=== PATIENT | female | born 1970 | race Caucasian/White ===

== ENCOUNTER 2021-04-01 02:00 | Outpatient (CLI) | payer MEDICAID | END 2021-04-01 02:01 | disposition critical access hospital (66) | LOC: EMS 02:00 | DX: R41.82 Altered mental status, unspecified (principal); R53.83 Other fatigue | CPT/HCPCS: A0425; A0427; A0999 ==

== ENCOUNTER 2021-04-01 02:19 | Inpatient (IN) | payer MEDICAID ==
--- NOTE | 2021-04-01 02:30 | ED Physician Documentation ---
History of Present Illness - Stated complaint Stated Complaint: AMS - History obtained from History obtained from: EMS - Additonal information Additional information: 50yF bibems with AMS and report of possible drug overdose. patient was found in [place] low income housing where she was apparently visiting friends and became somnolent. EMS had trouble getting information on scene. 0.4 mg IV narcan administered en route with minimal improvement in somnolence. Fingerstick in field 224. On arrival, patient opens eyes to loud verbal cue, is able to state name, squeezes both hands on commands, but is visibly somnolent. further history limited by patient AMS Review of Systems Unable to obtain: Intoxicated PD PAST MEDICAL HISTORY - Past Surgical History Past Surgical History: No - Present Medications Home Medications: Ambulatory Orders Medication Instructions Recorded Confirmed No Known Home Medications 08/03/15 08/03/15 - Allergies Allergies/Adverse Reactions: Allergies Allergy/AdvReac Type Severity Reaction Status Date / Time No Known Drug Allergies Allergy Verified 04/01/21 02:32 - Social History Does the pt smoke?: Yes Smoking Status: Current every day smoker - Immunizations Immunizations are current?: No Immunizations: TDAP >10years/unknown PD ED PE NORMAL - Vitals Vital signs reviewed: Yes - General General: No acute distress, Other (AOX1) - HEENT HEENT: Atraumatic, PERRL, EOMI, Pharynx benign, Other (brownish substance visible to R nare c/w dried blood) - Neck Neck: Supple, no meningeal sign, No bony TTP - Cardiac Cardiac: RRR - Respiratory Respiratory: No respiratory distress, Clear bilaterally - Abdomen Abdomen: Non tender, Non distended - Back Back: No spinal TTP - Derm Derm: Other (excoriations to face consistent with methamphetamine "picking" mannerisms) - Neuro Neuro: Other (somnolent, moving all extremities on command. no facial droop. some slurring of speech) Eye Opening: To Voice Motor: Obeys Commands Verbal: Confused GCS Score: 13 - Psych Psych: Other (somnolent) Results - Vitals Vitals: Vital Signs - 24 hr 04/01/21 04/01/21 04/01/21 02:32 02:36 03:06 Temperature 36.1 C L 36.1 C L Heart Rate 90 90 94 Respiratory 13 11 L 13 Rate Blood Pressure 124/99 H 124/66 124/66 O2 Saturation 95 95 96 Oxygen O2 Source Room air - EKG (time done) 0239 Rate: Rate (enter#) (87) Rhythm: NSR [place]: Normal Intervals: Normal NM QRS: Normal Ischemia: Normal ST segments - Labs Labs: Laboratory Tests 04/01/21 04/01/21 04/01/21 02:30 02:30 03:00 WBC 13.6 H RBC 4.44 Hgb 13.5 Hct 41.3 MCV 93.0 MCH 30.4 MCHC 32.7 RDW 13.2 Plt Count 252 MPV 9.7 Neut # (Auto) 11.7 H Lymph # (Auto) 1.0 L [place] # (Auto) 0.6 Eos # (Auto) 0.1 Baso # (Auto) 0.0 Absolute Nucleated RBC 0.00 Nucleated RBC % 0.0 Sodium 141 Potassium 4.1 Chloride 105 Carbon Dioxide 26 Anion Gap 10.0 BUN 18 Creatinine 1.2 H Estimated GFR (MDRD) 48 L Glucose 45 L* Calcium 8.8 Total Bilirubin 0.4 AST 53 H ALT 51 Alkaline Phosphatase 68 Total Protein 7.2 Albumin 4.1 Globulin 3.1 Albumin/Globulin Ratio 1.3 Lipase 36 Urine Color YELLOW Urine Clarity CLEAR Urine pH 6.0 Ur Specific [place] >=1.030 H Urine Protein TRACE Urine Glucose (UA) 250 H Urine Ketones NEGATIVE Urine Occult Blood SMALL H Urine Nitrite NEGATIVE Urine Bilirubin NEGATIVE Urine Urobilinogen 0.2 (NORMAL) Ur Leukocyte Esterase NEGATIVE Urine RBC 11-25 H Urine WBC 0-3 Ur Squamous Epith Cells FEW Squamous Urine Bacteria Rare Ur Microscopic Review INDICATED Urine Culture Comments NOT INDICATED Urine HCG, Qual NEGATIVE Salicylates < 6.0 Urine Opiates Screen NEGATIVE Ur Oxycodone Screen NEGATIVE Urine Methadone Screen NEGATIVE Ur Propoxyphene Screen NEGATIVE Acetaminophen < 10 L Ur Barbiturates Screen NEGATIVE Ur Tricyclics Screen NEGATIVE Ur Phencyclidine Scrn NEGATIVE Ur Amphetamine Screen POSITIVE H U Methamphetamines Scrn POSITIVE H U Benzodiazepines Scrn NEGATIVE Urine Cocaine Screen NEGATIVE U Cannabinoids Screen NEGATIVE Ethyl Alcohol < 5.0 PD MEDICAL DECISION MAKING - ED course ED course: d/w significant other Ciro over the phone who states that patient occasionally smokes marijuana and methamphetamine and she went over to "some people's house" this evening and took an unknown amount of percocet. Ciro states he was concerned because she appeared to spit up blood and became somnolent and he thought she was having a stroke and called EMS. Per his report, she has a past medical history of "liver or kidney disease". Limited historian. Note that despite EMS report of POC glucose in 200s, patient was hypoglycemic on initial labs. 1 amp D50 administered and glucose now in 100s without significant change in mental status. she then vomited just prior to CT. d/w [facility]/toxicology (case [id number], pharmacist Merlyn) re: patient presentation and unclear history. She agrees this sounds consistent with opioid overdose and since she is sustaining her airway and breathing at rate of 12 we can continue to monitor and administer narcan if any respiratory depression. Sulfonylurea overdose can cause frequent hypoglycemia over the course of 12 hours but other diabetes drugs rarely cause such significant rapid drop. Plan continuing to monitor blood glucose. On return from CT, patient with waning mental status and RR 9 improving to 18 with stimulation. Plan 0.[address] wet read negative. d/w Dr. Mills for ICU admission. Departure - Departure Disposition: 66 [facility] DC/Xfer Clinical Impression: Hypoglycemia, Polysubstance abuse, Altered mental status, Aspiration pneumonitis Condition: Stable
[2021-04-01 02:41] LABS: BASOPHILS % (AUTO) 0.3 %; EOSINOPHILS # (AUTO) 0.1 10^3/uL (0.0-0.7); EOSINOPHILS % (AUTO) 0.4 %; HCT - HEMATOCRIT 41.3 % (37.0-47.0); HGB - HEMOGLOBIN 13.5 g/dL (12.0-16.0); LYMPHOCYTES % (AUTO) 7.6 %; MEAN CORPUSCULAR HEMOGLOBIN 30.4 pg (27.0-31.0); MEAN CORPUSCULAR HGB CONC 32.7 g/dL (32.0-36.0); MEAN PLATELET VOLUME 9.7 fL (7.9-10.8); MONOCYTES # (AUTO) 0.6 10^3/uL (0.0-1.0); MONOCYTES % (AUTO) 4.6 %; NEUTROPHILS # (AUTO) 11.7 10^3/uL (1.5-6.6); NEUTROPHILS % (AUTO) 85.9 %; PLT - PLATELET COUNT 252 10^3/uL (130-450); RED BLOOD COUNT 4.44 10^6/uL (4.20-5.40); RED CELL DISTRIBUTION WIDTH 13.2 % (12.0-15.0); WHITE BLOOD COUNT 13.6 x10^3/uL (4.8-10.8)
[2021-04-01 02:58] LABS: ACETAMINOPHEN < 10 ug/mL (10-30); ALBUMIN 4.1 g/dL (3.2-5.5); ALBUMIN/GLOBULIN RATIO 1.3 (1.0-2.2); ALKALINE PHOSPHATASE 68 IU/L (42-121); ALT ALANINE AMINOTRANSFERASE 51 IU/L (10-60); AST ASPARTATE AMINOTRANSFERASE 53 IU/L (10-42); BILIRUBIN,TOTAL 0.4 mg/dL (0.2-1.0); BUN - BLOOD UREA NITROGEN 18 mg/dL (6-20); CALCIUM 8.8 mg/dL (8.5-10.3); CARBON DIOXIDE - CO2 26 mmol/L (21-32); CHLORIDE 105 mmol/L (101-111); CREATININE 1.2 mg/dL (0.4-1.0); ETOH - ETHANOL < 5.0 mg/dL; GFR - MDRD 48 (>89); LIPASE 36 U/L (22-51); POTASSIUM 4.1 mmol/L (3.5-5.0); SALICYLATE < 6.0 mg/dL; SODIUM 141 mmol/L (135-145); TOTAL PROTEIN 7.2 g/dL (6.7-8.2)
[2021-04-01 03:01] LABS: GLUCOSE 45 mg/dL (70-100)
[2021-04-01] MEDS ORDERED: DEXTROSE 50% ABBOJECT 25 GM/50 ML SYRINGE IVP STA (03:01)
[2021-04-01 03:02] LABS: MUDS CUTOFF CONCENTRATIONS CUTOFF CONC BELOW:
[2021-04-01 03:03] LABS: BILIRUBIN,URINE NEGATIVE (NEGATIVE); GLUCOSE, URINE (UA) 250 mg/dL (NEGATIVE); KETONES,URINE (UA) NEGATIVE (NEGATIVE); LEUKOCYTE ESTERASE, URINE NEGATIVE (NEGATIVE); NITRITE,URINE NEGATIVE (NEGATIVE); OCCULT BLOOD,URINE SMALL (NEGATIVE); PROTEIN,URINE TRACE mg/dL (NEGATIVE); UROBILINOGEN,URINE 0.2 (NORMAL) E.U./dL (NORMAL)
[2021-04-01 03:06] LABS: CLARITY,URINE CLEAR (CLEAR); HCG UR QUAL NEGATIVE
[2021-04-01 03:12] LABS: BACTERIA,URINE Rare /HPF (None Seen); SQUAMOUS EPITHELIAL CELL,UR FEW Squamous (<= Few); WBC,URINE 0-3 /HPF (0-5)
[2021-04-01 03:15] LABS: AMPHETAMINE SCREEN,URINE POSITIVE (NEGATIVE); BARBITURATE SCREEN,UR NEGATIVE (NEGATIVE); BENZODIAZEPINES SCREEN, URINE NEGATIVE (NEGATIVE); COCAINE SCREEN URINE NEGATIVE (NEGATIVE); METHADONE SCREEN, URINE NEGATIVE (NEGATIVE); METHAMPHETAMINES SCREEN, URINE POSITIVE (NEGATIVE); OPIATE SCREEN, URINE NEGATIVE (NEGATIVE); OXYCODONE SCREEN, URINE NEGATIVE (NEGATIVE); PROPOXYPHENE SCREEN, URINE NEGATIVE (NEGATIVE); THC CANNABINOID SCREEN, URINE NEGATIVE (NEGATIVE); TRICYCLIC ANTIDEPRESSANT,URINE NEGATIVE (NEGATIVE)
[2021-04-01] MEDS ORDERED: ONDANSETRON 4 MG/2 ML VIAL IVP STA (03:32)
[2021-04-01] MEDS ORDERED: ACETAMINOPHEN 325 MG TABLET PO PRN (03:56)
[2021-04-01] MEDS ORDERED: SODIUM CHLORIDE FLUSH 0.9% 10 ML SYRINGE IVP PRN (03:56)
[2021-04-01] MEDS ORDERED: ONDANSETRON ODT 4 MG TABLET TL PRN (03:56)
[2021-04-01] MEDS ORDERED: ONDANSETRON 4 MG/2 ML VIAL IVP PRN (03:56)
[2021-04-01] MEDS ORDERED: PIPERACILLIN/TAZOBACTAM 3.375 GM in SODIUM CHLORIDE 0.9% MINIBAG 100 ML IV STA (03:57)
[2021-04-01] MEDS ORDERED: DEXTROSE 5%-0.9% NACL 1,000 ML IV SCH (04:00)
[2021-04-01] MEDS ORDERED: DEXTROSE 5%-0.45% NACL 1,000 ML IV SCH (04:00)
--- NOTE | 2021-04-01 04:02 | HISTORY & PHYSICAL EXAMINATION ---
Chief Complaint - Chief Complaint Chief Complaint: Lethargy History of Present Illness - Admitted From Admitted From:: Home - History Obtained From Records Reviewed: Yes History obtained from: ER Physician, EMR Exam Limitations: Patient is unable provide history due to the overdose - History of Present Illness HPI Comment/Other: This is a 50-year-old female with an unknown past medical history who presents today after being found lethargic/somnolent with concern for potential drug overdose. History is obtained from the emergency department physician and EMR as the patient is unable to provide history due to somnolence. Reportedly, the patient's significant other and informed the emergency department physician that the patient may have took a special kind of Percocet. It was also noted that she is a history of methamphetamine use and the past. EMS was called today when patient became increasingly somnolent/lethargic. She was given Narcan without much improvement. Her blood glucose was initially noted to be 224 but later upon arrival to the emergency department, it was 45. It was noted in the emergency department that she had blood in her right naris. She underwent a CT of the head which reportedly showed no acute abnormalities. Chest x-ray was concerning for edema or infiltrates. Her labs were significant for a white count of 13,000 and a blood glucose of 45. Her AST was mildly elevated at 53. She was given another dose of Narcan in the emergency department with minimal response. Given her ongoing somnolence, medicine was consulted for admission. History - Family & Social History Family History Comment/Other: Unable to obtain due to her somnolence. Social History Notes: Unable to obtain social history due to her somnolence. She reported as of a history of amphetamine use in her urine toxicology confirms this. Meds/Allgy - Home Medications Home Medications: Ambulatory Orders Medication Instructions Recorded Confirmed No Known Home Medications 08/03/15 08/03/15 - Allergies Allergies/Adverse Reactions: Allergies Allergy/AdvReac Type Severity Reaction Status Date / Time No Known Drug Allergies Allergy Verified 04/01/21 02:32 Review of Systems - All Other Systems All Other Systems: reports: Other (Unable to obtain due to her somnolence.) Prior Level of Functionality: It appears that she is independent with her ADLs at baseline. Exam - Vital Signs Reviewed Vital Signs: Yes Vital Signs: Vital Signs x48h Temp Pulse Resp BP Pulse Ox 04/01/21 03:06 94 13 124/66 96 04/01/21 02:36 36.1 C L 90 11 L 124/66 95 04/01/21 02:32 36.1 C L 90 13 124/99 H 95 - Physical Exam General Appearance: positive: Lethargic, Other (She appears to be in no distress. She is lethargic. She will respond to painful stimuli and attempts to answer questions but she only mumbles.) Eyes Bilateral: positive: Conjunctivae nml, Other (Pupils constricted but reactive to light bilaterally.) Neck: positive: Nml inspection Respiratory: positive: No respiratory distress. negative: Wheezes, Rales Cardiovascular: positive: No murmur. negative: Tachycardia, Systolic murmur Abdomen: positive: Non-tender, No distention. negative: Tenderness Skin: positive: Warm, Dry Extremities: positive: No pedal edema Neurologic/Psychiatric: positive: Other (She is unable to follow commands to perform a neurologic exam but she does appear to move here extremities sporadically.) Conclusion/Plan - Problem List (1) Drug overdose Conclusion/Plan: Concern is for a drug overdose likely due to the Percocet she took which may have been laced. Urine toxicology is positive for methamphetamines and she reported does have a history of methamphetamine use. Toxicology was negative for opiates/oxycodone. Fortunately, she is able to protect her airway. Plan will be to monitor her in the ICU overnight. We will hold off on further Narcan given she has not responded to it and she is able to protect her airway. We will place her on end-tidal CO2. We will check an ABG to rule out hypercapnia as a component of her somnolence. Social work has been consulted. (2) Aspiration pneumonia Conclusion/Plan: Concern for potential aspiration given the drug overdose and abnormal chest x- ray. Her white count is also elevated. We will place her empirically on Unasyn IV and we will look to de-escalate over the next 24 to 48 hours. (3) Hypoglycemia Conclusion/Plan: She was hypoglycemic with a blood glucose of 45. There is reportedly no history of diabetes. She responded well to dextrose and we will keep her on D5/half- normal until she is awake enough to take p.o. We will check her blood glucose every 2 hours until she can take p.o consistently. - Lab Results Lab results reviewed: Yes Fish Bones: 04/01/21 05:29 04/01/21 05:29 - Diagnostic Imaging Results Diagnostic Imaging Results: positive: Prelim report reviewed Core Measures - Anticipated LOS I expect patient to be DC'd or transferred within 96 hours.: Yes - Issues Hospital Issues and Management Plan: 50-year-old female presents with all mental status likely due to drug overdose. She will be placed in observation to monitor her respiratory/neurologic status. - DVT/VTE - Prophylaxis VTE/DVT Device ordered at admit?: Yes VTE/DVT Prophylaxis med ordered at admit?: No
[2021-04-01] MEDS ORDERED: NALOXONE 0.4 MG/ML VIAL IVP STA (04:03)
[2021-04-01 04:12] LABS: B. PARAPERTUSSIS- RESP PCR PAN NOT DETECTED; B. PERTUSSIS- RESP PCR PANEL NOT DETECTED; C. PNEUMONIAE- RESP PCR PANEL NOT DETECTED; CORONAVIRUS 229E-RESP PCR NOT DETECTED; CORONAVIRUS HKU1-RESP PCR NOT DETECTED; CORONAVIRUS NL63-RESP PCR NOT DETECTED; CORONAVIRUS OC43-RESP PCR NOT DETECTED; HUMAN METAPNEUMOVIRUS NOT DETECTED; INFLUENZA A- RESP PCR PANEL NOT DETECTED; INFLUENZA B - RESP PCR PANEL NOT DETECTED; M. PNEUMONIAE- RESP PCR PANEL NOT DETECTED; PARAINFLUENZA VIRUS 1 NOT DETECTED; PARAINFLUENZA VIRUS 2 NOT DETECTED; PARAINFLUENZA VIRUS 3 NOT DETECTED; PARAINFLUENZA VIRUS 4 NOT DETECTED; RHINOVIRUS/ENTEROVIRUS NOT DETECTED; RSV- RESP PCR PANEL NOT DETECTED; SARS-CoV-2 -RESP PCR PANEL NOT DETECTED
[2021-04-01 05:38] LABS: BASOPHILS # (AUTO) 0.1 10^3/uL (0.0-0.1); BASOPHILS % (AUTO) 0.3 %; EOSINOPHILS % (AUTO) 0.2 %; HGB - HEMOGLOBIN 12.5 g/dL (12.0-16.0); LYMPHOCYTES # (AUTO) 0.8 10^3/uL (1.5-3.5); LYMPHOCYTES % (AUTO) 5.3 %; MEAN CORPUSCULAR HEMOGLOBIN 30.6 pg (27.0-31.0); MEAN CORPUSCULAR HGB CONC 32.9 g/dL (32.0-36.0); MEAN CORPUSCULAR VOLUME 93.1 fL (81.0-99.0); MEAN PLATELET VOLUME 9.6 fL (7.9-10.8); MONOCYTES # (AUTO) 0.7 10^3/uL (0.0-1.0); MONOCYTES % (AUTO) 4.8 %; NEUTROPHILS % (AUTO) 88.8 %; PLT - PLATELET COUNT 242 10^3/uL (130-450); RED BLOOD COUNT 4.08 10^6/uL (4.20-5.40); RED CELL DISTRIBUTION WIDTH 13.2 % (12.0-15.0); WHITE BLOOD COUNT 14.7 x10^3/uL (4.8-10.8)
[2021-04-01 05:54] LABS: CALCIUM 8.4 mg/dL (8.5-10.3); MAGNESIUM 2.2 mg/dL (1.7-2.8); PHOSPHORUS 3.8 mg/dL (2.5-4.6); POTASSIUM 4.2 mmol/L (3.5-5.0)
[2021-04-01 06:14] LABS: ABG PCO2 42 mmHg (34-45); ABG PH 7.33 (7.35-7.45); ABG PO2 75 mmHg (80-100)
[2021-04-01 06:15] LABS: ABG BASE EXCESS -4.5 mmol/L (-2.0-3.0); ABG HCO3 21.2 mmol/L (22.0-26.0); ABG OXYGEN SATURATION 94 % (94-98); ABG TCO2 22.5 MMOL/L (21.0-29.0); ALLEN TEST POSITIVE
--- NOTE | 2021-04-01 08:03 | CT Report ---
PROCEDURE: HEAD WO INDICATIONS: sleepy, likely overdose TECHNIQUE: Noncontrast 4.5 mm thick angled axial sections acquired from the foramen magnum to the vertex. For r adiation dose reduction, the following was used: automated exposure control, adjustment of mA and/or kV according to patient size. COMPARISON: None. FINDINGS: Image quality: There is mild motion artifact. CSF spaces: Basal cisterns are patent. No extra-axial fluid collections. Ventricles are normal in size and shape. Brain: No intracranial hemorrhage, mass, or mass effect. Rudolph-white matter interface is preserved. Skull and face: Calvarium and visualized facial bones are intact, without suspicious lesions. Sinuses: Visualized sinuses and mastoids are clear. IMPRESSION: 1. No acute intracranial abnormality. Concordant with preliminary report. Reviewed by: Cory Prince MD on 04/01/2021 8:01 AM PDT Approved by: Cory Prince MD on 04/01/2021 8:01 AM PDT Station ID: [id number]
--- NOTE | 2021-04-01 08:28 | XRAY Report ---
PROCEDURE: Chest 1 View X-Ray INDICATIONS: "spitting up blood" TECHNIQUE: One view of the chest was acquired. COMPARISON: None FINDINGS: Surgical changes and devices: None. Lungs and pleura: Bilateral pulmonary opacities predominantly in the bases. Mediastinum: Mediastinal contours appear normal. Heart size is enlarged. Bones and chest wall: No suspicious bony lesions. Overlying soft tissues appear unremarkable. IMPRESSION: Bilateral predominantly bibasilar opacities suggestive of pneumonia versus edema. The above findings are concordant with preliminary report. Reviewed by: Kelly Brody MD on 04/01/2021 8:27 AM PDT Approved by: Kelly Brody MD on 04/01/2021 8:27 AM PDT Station ID: [id number]
[2021-04-01] MEDS: AMPICILLIN/SULBACTAM 3 GM in SODIUM CHLORIDE 0.9% MINIBAG 100 ML IV SCH ×3 (11:26→22:20)
[2021-04-01] MEDS: SODIUM CHLORIDE FLUSH 0.9% 10 ML SYRINGE IVP SCH ×2 (11:31→19:52)
[2021-04-02] MEDS: SODIUM CHLORIDE FLUSH 0.9% 10 ML SYRINGE IVP SCH ×4 (03:12→21:48)
[2021-04-02] MEDS: AMPICILLIN/SULBACTAM 3 GM in SODIUM CHLORIDE 0.9% MINIBAG 100 ML IV SCH ×4 (03:23→21:48)
[2021-04-02 04:50] LABS: CALCIUM, IONIZED 1.1 mmol/L (1.15-1.33); VBG PH 7.39 (7.31-7.41)
[2021-04-02 04:52] LABS: BASOPHILS % (AUTO) 0.2 %; EOSINOPHILS # (AUTO) 0.2 10^3/uL (0.0-0.7); HCT - HEMATOCRIT 35.2 % (37.0-47.0); HGB - HEMOGLOBIN 11.4 g/dL (12.0-16.0); LYMPHOCYTES # (AUTO) 1.6 10^3/uL (1.5-3.5); LYMPHOCYTES % (AUTO) 18.1 %; MEAN CORPUSCULAR HEMOGLOBIN 30.6 pg (27.0-31.0); MEAN CORPUSCULAR HGB CONC 32.4 g/dL (32.0-36.0); MEAN CORPUSCULAR VOLUME 94.4 fL (81.0-99.0); MEAN PLATELET VOLUME 9.9 fL (7.9-10.8); MONOCYTES # (AUTO) 0.5 10^3/uL (0.0-1.0); MONOCYTES % (AUTO) 5.2 %; NEUTROPHILS # (AUTO) 6.5 10^3/uL (1.5-6.6); NEUTROPHILS % (AUTO) 74.2 %; PLT - PLATELET COUNT 217 10^3/uL (130-450); RED BLOOD COUNT 3.73 10^6/uL (4.20-5.40); RED CELL DISTRIBUTION WIDTH 13.4 % (12.0-15.0); WHITE BLOOD COUNT 8.7 x10^3/uL (4.8-10.8)
[2021-04-02 05:05] LABS: CALCIUM 8.3 mg/dL (8.5-10.3); CREATININE 0.7 mg/dL (0.4-1.0); MAGNESIUM 1.9 mg/dL (1.7-2.8); PHOSPHORUS 2.6 mg/dL (2.5-4.6); POTASSIUM 3.6 mmol/L (3.5-5.0)
[2021-04-02] MEDS ORDERED: POTASSIUM CHLORIDE 20 MEQ TABLET PO ONE (08:00)
--- NOTE | 2021-04-02 10:41 | PHARMACY PROGRESS NOTE ---
- Best Possible Medication History Admit Date and Time: 04/01/21 0356 Processed by: Pharmacy Medication History completed: Yes Patient Interview: Completed (PATIENT REPORTS SHE DOES NOT TAKE HOME MEDICATIONS) As the person ultimately responsible for medication therapy, providers are able to order a medication from an existing home medication list in [facility] via the "Reconcile Routine" prior to Confirmation of that medication by ict support and test engineers. Such practice is discouraged except when the physician, in their clinical judgment, deems that a medical need exists for a medication without regard to previous use.
--- NOTE | 2021-04-02 17:31 | PROVIDER PROGRESS NOTE ---
Subjective - Prog Note Date Prog Note Date: 04/02/21 Prog Note Time: 17:29 - Subjective Subjective: She woke up this morning but not by much. She falls asleep in midsentence. She has not been able to finish her meals because she falls asleep in mid meal. She has periods of snoring and apnea for 6 to 7 seconds. Current Medications - Current Medications Current Medications: Active Medications Acetaminophen (Acetaminophen 325 Mg Tablet) 650 mg PO Q4HR PRN PRN Reason: Pain 1 to 4 Ampicillin Sodium/Sulbactam (Sodium 3 gm/ Sodium Chloride) 100 mls @ 200 mls/hr IV Q6H [facility] Last Admin: 04/02/21 16:10 Dose: 200 mls/hr Documented by: Ondansetron HCl (Ondansetron 4 Mg/2 Ml Vial) 4 mg IVP Q6HR PRN PRN Reason: Nausea / Vomiting Ondansetron HCl (Ondansetron Odt 4 Mg Tablet) 4 mg TL Q6HR PRN PRN Reason: Nausea / Vomiting Sodium Chloride (Sodium Chloride Flush 0.9% 10 Ml Syringe) 10 ml IVP 0100,0900,1700 [facility] Last Admin: 04/02/21 16:14 Dose: 10 ml Documented by: Sodium Chloride (Sodium Chloride Flush 0.9% 10 Ml Syringe) 10 ml IVP PRN PRN PRN Reason: NEEDED PER PROVIDER ORDERS No Known Home Medications 04/02/21 Objective - Vital Signs/Intake & Output Reviewed Vital Signs: Yes Vital Signs: Vital Signs x48h Temp Pulse Resp BP Pulse Ox 04/02/21 16:59 37.1 C 86 23 110/71 96 04/02/21 13:00 37.2 C 84 16 109/73 96 Intake & Output: Intake & Output 03/30/21 03/31/21 04/01/21 04/02/21 23:59 23:59 23:59 23:59 Intake Total 2806.666 1110 Output Total 900 2150 Balance 1906.666 -1040 - Objective General Appearance: positive: No acute distress, Lethargic Eyes Bilateral: positive: PERRL, EOMI Neck: positive: Trachea midline. negative: No JVD, Stiff neck Respiratory: positive: No respiratory distress, Other (Respiratory rate will drop to 12, snoring, no use of accessory muscles,). negative: Wheezes, Rales, Rhonchi Cardiovascular: positive: Regular rate & rhythm. negative: Gallop/S4, Friction rub Abdomen: positive: Non-tender, No organomegaly, Nml bowel sounds, No distention Skin: positive: Warm, Dry, Pallor Extremities: positive: Full ROM, No pedal edema Neurologic/Psychiatric: positive: CN's nml (2-12), Motor nml, Disoriented to time, Slurred/abnml speech (Still very lethargic at 5:31 PM) - Lab Results Fish Bones: 04/02/21 04:14 04/02/21 04:14 Other Labs: Lab Results x24hrs 04/02/21 04/02/21 04/02/21 Range/Units 04:14 04:14 04:14 WBC 8.7 (4.8-10.8) x10^3/uL RBC 3.73 L (4.20-5.40) 10^6/uL Hgb 11.4 L (12.0-16.0) g/dL Hct 35.2 L (37.0-47.0) % MCV 94.4 (81.0-99.0) fL MCH 30.6 (27.0-31.0) pg MCHC 32.4 (32.0-36.0) g/dL RDW 13.4 (12.0-15.0) % Plt Count 217 (130-450) 10^3/uL MPV 9.9 (7.9-10.8) fL Neut # (Auto) 6.5 (1.5-6.6) 10^3/uL Lymph # (Auto) 1.6 (1.5-3.5) 10^3/uL [place] # (Auto) 0.5 (0.0-1.0) 10^3/uL Eos # (Auto) 0.2 (0.0-0.7) 10^3/uL Baso # (Auto) 0.0 (0.0-0.1) 10^3/uL Absolute Nucleated RBC 0.00 x10^3/uL Nucleated RBC % 0.0 /100WBC VBG pH 7.390 (7.31-7.41) Ionized Calcium 1.10 L (1.15-1.33) mmol/L Sodium 135 (135-145) mmol/L Potassium 3.6 (3.5-5.0) mmol/L Chloride 102 (101-111) mmol/L Carbon Dioxide 26 (21-32) mmol/L Anion Gap 7.0 (6-13) BUN 10 (6-20) mg/dL Creatinine 0.7 (0.4-1.0) mg/dL Estimated GFR (MDRD) 89 (>89) Glucose 103 H (70-100) mg/dL Calcium 8.3 L (8.5-10.3) mg/dL Phosphorus 2.6 (2.5-4.6) mg/dL Magnesium 1.9 (1.7-2.8) mg/dL Assessment/Plan - Problem List (1) Drug overdose Impression: Concern is for a drug overdose likely due to the Percocet she took which may have been laced. Urine toxicology is positive for methamphetamines and she reported does have a history of methamphetamine use. Toxicology was negative for opiates/oxycodone. Fortunately, she is able to protect her airway. She was monitored overnight, and has periods of apnea but has been stable. She woke up enough this morning to now be conversant but she goes right back to sleep. Social work is already senior. I believe the police are involved to find out what kind of tablet she got since it was a possible synthetic. In any case she still not awake enough to be by herself. She has contact-guard assist when she gets up to go to the bathroom and come back to bed. But she still heavily sedated she stumbles when she walks. Plan: Change to inpatient status (2) Aspiration pneumonia Conclusion/Plan: Concern for potential aspiration given the drug overdose and abnormal chest x- ray. Her white count was also elevated. We placed her empirically on Unasyn IV and we will look to de-escalate. White cell count started at 13.6. And went up to 14.7. Today she is normal 8.7. She is 96% on room air. No fever. will stop antibiotics. (3) Hypoglycemia Conclusion/Plan: She was hypoglycemic with a blood glucose of 45. There is reportedly no history of diabetes. This morning she has been 101, 100, 108. It is come up to 96. She has been eating a little bit. D5 has been stopped.
[2021-04-03] MEDS: AMPICILLIN/SULBACTAM 3 GM in SODIUM CHLORIDE 0.9% MINIBAG 100 ML IV SCH (03:31)
[2021-04-03 05:01] LABS: BASOPHILS % (AUTO) 0.5 %; EOSINOPHILS # (AUTO) 0.3 10^3/uL (0.0-0.7); EOSINOPHILS % (AUTO) 3.9 %; HCT - HEMATOCRIT 37.7 % (37.0-47.0); HGB - HEMOGLOBIN 12.3 g/dL (12.0-16.0); LYMPHOCYTES # (AUTO) 1.8 10^3/uL (1.5-3.5); LYMPHOCYTES % (AUTO) 21.8 %; MEAN CORPUSCULAR HEMOGLOBIN 30.5 pg (27.0-31.0); MEAN CORPUSCULAR HGB CONC 32.6 g/dL (32.0-36.0); MEAN CORPUSCULAR VOLUME 93.5 fL (81.0-99.0); MONOCYTES # (AUTO) 0.5 10^3/uL (0.0-1.0); MONOCYTES % (AUTO) 5.8 %; NEUTROPHILS # (AUTO) 5.5 10^3/uL (1.5-6.6); NEUTROPHILS % (AUTO) 67.6 %; PLT - PLATELET COUNT 200 10^3/uL (130-450); RED BLOOD COUNT 4.03 10^6/uL (4.20-5.40); RED CELL DISTRIBUTION WIDTH 12.9 % (12.0-15.0); WHITE BLOOD COUNT 8.2 x10^3/uL (4.8-10.8)
[2021-04-03 05:03] LABS: CALCIUM, IONIZED 1.11 mmol/L (1.15-1.33); VBG PH 7.461 (7.31-7.41)
[2021-04-03 05:16] LABS: CALCIUM 8.5 mg/dL (8.5-10.3); CREATININE 0.7 mg/dL (0.4-1.0); MAGNESIUM 1.9 mg/dL (1.7-2.8); PHOSPHORUS 2.5 mg/dL (2.5-4.6)
--- NOTE | 2021-04-03 07:26 | Discharge Plan ---
Discharge Plan Problem Reviewed?: Yes Disposition: Home, Self Care Condition: Stable Diet: Regular Activity Restrictions: Additional Comments (no more use of non prescribed pills from friends nor recreational substances either) Shower Restrictions: No Driving Restrictions: No Health Concerns: You came to the emergency room after your friends found you unconscious. You became unconscious quickly after taking a pill given to you by another friend. Since the talk screen is negative for opioids, and you thought you were taking an oxycodone, we think that is it is symptomatic opioid that suppress your ability to breathe and you became unconscious. Plan of Treatment: We watched your breathing, hydrated you since you are unconscious and unable to eat. You are now awake enough to return to home today Care Goals: Please do not ever take pills given to you by somebody else unless they were prescribed by your provider and given to you by pharmacy. Do not use any recreational substances. Assessment: Patient understands care goals and will follow through with her primary care provider No Smoking: If you smoke, Please STOP! Call for help.
[2021-04-03 08:06] VITALS: BP 122/72
[2021-04-03] MEDS ORDERED: polyethylene glycoL 3350 17 GM PACKET PO SCH (09:00)
--- NOTE | 2021-04-03 09:19 | DISCHARGE SUMMARY ---
"Discharge Summary Admit Date: 04/01/21 Discharge Date: 04/03/21 Discharging Provider: Meggan Delgadillo MD Primary Care Provider: NO PCP, needs to establish Code Status: Attempt Resuscitation Condition at Discharge: Stable Discharge Disposition: 01 Home, Self Care - DIAGNOSES Discharge Diagnoses with Status of Each Condition: 1. Accidental drug overdose 2. Aspiration pneumonia 3. Hypoglycemia - HPI History of Present Illness: This is a 50-year-old female with an unknown past medical history who presents today after being found lethargic/somnolent with concern for potential drug overdose. History is obtained from the emergency department physician and EMR as the patient is unable to provide history due to somnolence. Reportedly, the patient's significant other and informed the emergency department physician that the patient may have took a special kind of Percocet. It was also noted that she is a history of methamphetamine use and the past. EMS was called today when patient became increasingly somnolent/lethargic. She was given Narcan without much improvement. Her blood glucose was initially noted to be 224 but later upon arrival to the emergency department, it was 45. It was noted in the e mergency department that she had blood in her right naris. She underwent a CT of the head which reportedly showed no acute abnormalities. Chest x-ray was concerning for edema or infiltrates. Her labs were significant for a white count of 13,000 and a blood glucose of 45. Her AST was mildly elevated at 53. She was given another dose of Narcan in the emergency department with minimal response. Given her ongoing somnolence, medicine was consulted for admission. - CONSULTS | PROCEDURES Procedures: Head CT is without acute intracranial abnormality. Chest x-ray has predominantly bibasilar opacities suggestive of pneumonia versus edema. Blood cultures negative after 2 days Toxicology screen positive for amphetamines and methamphetamines but no opioids - HOSPITAL COURSE Hospital Course: She was initially placed in observation with hopes that she would wake up on her own. After 24 to 48 hours she was still significantly lethargic and sedated. But by today she is able to walk to the bathroom on her own without contact- guard assist. However, she still significantly sleepy. She is able to eat her breakfast, talk on the phone. But when no longer stimulated will fall right back to sleep Since her tox urine was negative for opioids, we suspect that there is a synthetic opioid that she was given. We have asked her not to take any more nonprescribed medications, and to seek help with methamphetamine abuse. During her stay she was hypoglycemic and required a D5 drip. However when she was awake and eating glucose rebounded. She was initially treated as possible aspiration but she remained without oxygen requirements and without fever or respiratory distress and as such antibiotics were stopped. At discharge temperature was 36.7. Heart rate 77. Blood pressure 122/72. Respirations 18 and 97% on room air. She is 5 foot 2 inches tall weighs 76 kg. [place] colored hair with many curls. Penciled and eyebrows. Very sleepy and requires me shaking her shoulder several times for her to wake up. But she immediately gets up to go to the bathroom on her own. Lungs are clear. Regular rate and rhythm. Abdomen is soft, nontender. No focal deficits. Just excessive somnolence at times. Greater than 30 minutes was spent coordinating discharge. ER providers have notified me that this is the second or third patient with this type of presentation and such the health department and the Police Department are involved in trying to figure out what the pills are that this patient may re ceive. She does not have a primary care provider. She has been asked to establish self with 1 and see one in follow-up. The last prescription she had filled was with the Dr. Crespo who is an ER doctor at [facility]. - ALLERGIES Allergies/Adverse Reactions: Allergies Allergy/AdvReac Type Severity Reaction Status Date / Time No Known Drug Allergies Allergy Verified 04/01/21 02:32 - MEDICATIONS Home Medications: Ambulatory Orders Medication Instructions Recorded Confirmed No Known Home Medications 04/02/21 04/02/21 - LABS Result Diagrams: 04/03/21 04:16 04/03/21 04:16"
== END 2021-04-03 09:55 | disposition home or self-care (01) | DRG 917 ==
LOC: EDUNIT# → ED 02:19 → ICU 03:56 → OBSVTOIN 04-02 17:27
PROVIDERS: ADMIT Internal Medicine; ATTEND Specialist
DX: T50.904A Poisoning by unspecified drugs, medicaments and biological substances, undetermined, initial encounter (principal); J69.0 Pneumonitis due to inhalation of food and vomit; E16.2 Hypoglycemia, unspecified; R40.0 Somnolence; R06.81 Apnea, not elsewhere classified; F15.10 Other stimulant abuse, uncomplicated; F17.200 Nicotine dependence, unspecified, uncomplicated; Z20.822 Contact with and (suspected) exposure to COVID-19
CPT/HCPCS: 0202U; 36415; 36600; 70450; 71045; 80048; 80053; 80306; 80307; 80320; 80329; 81001; 81025; 82330; 82550; 82803; 83690; 83735; 84100; 85025; 87040; 87150; 93005; 96361; 96365; 96366; 96375; 99285; A9270; G0378; 81003; 82274; 87086